=== PATIENT | male | born 1970 | race Caucasian/White ===

== ENCOUNTER 2023-02-16 19:20 | Emergency (ER) | payer MEDICAID ==
[~2023-02-16] VITALS: Ht 167.6 cm; Wt 68.0 kg
[2023-02-16 19:31] VITALS: BP 130/80; PULSE 95; O2SAT 98
--- NOTE | 2023-02-16 19:43 | NUR ---
PT IS IN THE LOOBY
--- NOTE | 2023-02-16 21:15 | NUR ---
PT TO BED
--- NOTE | 2023-02-16 21:30 | NUR ---
52 YO M BIB SELF C/O 5TH DIGIT RIGHT FINGER PAIN. PT STATES HE HAS A "SPLINTER" IN HIS FINGER FROM WORK. 5TH DIGIT APPEARS RED AND SWOLLEN. PT STATES PAIN RADIATES UP RIGHT HAND UP TO SHOULDER. AXO4. CALL LIGHT WITHIN REACH. NKDA NO MED HX.
[2023-02-16] MEDS ORDERED: HYDROcodone/APAP 5/325 MG 1 TAB TAB PO ONE (23:15)
[2023-02-16] MEDS ORDERED: cephALEXin 500 MG CAP PO ONE (23:25)
[2023-02-16] MEDS ORDERED: ACETAMINOPHEN EXTRA STRENGTH 500 MG TAB PO ONE (23:25)
[2023-02-16] MEDS ORDERED: BACITRACIN OINT 500 UNITS/GM PKT TP ONE (23:25)
--- NOTE | 2023-02-16 23:29 | NUR ---
DR DOS SANTOS AT BEDSIDE
[2023-02-16] MEDS ORDERED: LIDOCAINE 1% 500 MG/ 50 ML VIAL INJ ONE (23:30)
[2023-02-16] MEDS ORDERED: LIDOCAINE MPF 1% 5 ML ONE (23:35)
--- NOTE | 2023-02-17 00:17 | NUR ---
DR DOS SANTOS AT BEDSIDE FB REMOVAL IN DIGIT
[2023-02-17] MEDS ORDERED: NAPR-54 PO (00:32)
[2023-02-17] MEDS ORDERED: ACET-10509 PO (00:32)
[2023-02-17] MEDS ORDERED: CEPH-588 PO (00:32)
--- NOTE | 2023-02-17 00:35 | NUR ---
Patient discharged with v/s stable. Written and verbal after care instructions given and explained. Patient verbalized understanding. Ambulatory with steady gait. All questions addressed prior to discharge. Advised to follow up with PMD.
[2023-02-17 00:39] VITALS: BP 130/80; PULSE 95; RESP 17; TEMP 98; O2SAT 98
== END 2023-02-17 00:35 | disposition home or self-care (01) ==
LOC: MED 19:20
DX: S60.456A Superficial foreign body of right little finger, initial encounter (principal); Z23 Encounter for immunization; Z79.899 Other long term (current) drug therapy; W45.8XXA Other foreign body or object entering through skin, initial encounter; Y93.89 Activity, other specified; Y92.89 Other specified places as the place of occurrence of the external cause; Y99.8 Other external cause status
CPT/HCPCS: 10120; 73140; 90471; 90715; 99285; J2001